=== PATIENT | female | born 1980 | race Caucasian/White ===

== ENCOUNTER 2022-04-25 09:11 | Outpatient (CLI) | payer BC, SELFPAY ==
[2022-04-25 13:54] LABS: Basophils Percent Auto 0.3 % (0.0-3.0); Eosinophils Percent Auto 1.3 % (0.0-7.0); Hematocrit 37.9 % (33.0-51.0); Immature Granulocytes Pct Auto 0.3 %; Lymphocytes Percent Auto 24.1 % (20-44); Mean Corpuscular HGB Conc 32 gm/dL (32-36); Mean Corpuscular Hemoglobin 27 pg (26-34); Mean Corpuscular Volume 85 fL (80-100); Platelet Count* 546 K/uL (140-440); RDW Coefficient of Variation % 16.8 % (11.5-15.5); Red Blood Count 4.47 m/uL (4.00-5.20); White Blood Count* 13.03 K/uL (4.50-11.00)
[2022-04-25 13:57] LABS: Slide Review Reflex No
[2022-04-25 14:28] LABS: Chloride* 104 mmol/L (96-114); Potassium* 4.5 mmol/L (3.6-5.1); Sodium* 137 mmol/L (135-149)
[2022-04-25 14:31] LABS: Blood Urea Nitrogen* 13 mg/dL (5-24); Carbon Dioxide* 26 mmol/L (20-32); Creatinine* 0.6 mg/dL (0.5-1.5); Estimated Glomerular Filt Rate 116 ml/min; Glucose* 109 mg/dL (60-115)
[2022-04-25 14:32] LABS: Calcium* 9.1 mg/dL (8.4-10.6)
[2022-04-25 15:03] LABS: Ferritin* 6.6 ng/mL (6.24-137.0)
[2022-04-25 15:22] LABS: Vitamin B12* 248 pg/mL (243-894)
== END 2022-04-25 09:12 | disposition home or self-care (01) ==
PROVIDERS: PCP Family Medicine; Visit Provider Family Medicine
DX: E61.1 Iron deficiency (principal); K58.9 Irritable bowel syndrome, unspecified; E53.8 Deficiency of other specified B group vitamins; I10 Essential (primary) hypertension
CPT/HCPCS: 80048; 82607; 82728; 85025

== ENCOUNTER 2022-12-18 14:00 | Outpatient (CLI) | payer BC, SELFPAY ==
--- NOTE | 2022-12-18 14:00 | CRLHL7_ITS ---
For Patients: As a result of the Century Cures Act, medical imaging exams and procedure reports are released immediately into your electronic medical record. You may view this report before your referring provider. If you have questions, please contact your health care provider. BILATERAL SCREENING MAMMOGRAM WITH COMPUTER-AIDED DETECTION AND TOMOSYNTHESIS TECHNIQUE: CC and MLO views were obtained. These mammographic images have been obtained using full-field digital technique. These mammographic images were interpreted with the benefit of computer-aided detection. Breast tomosynthesis was used in this interpretation. COMPARISON FILM: None. This is a baseline study. FINDINGS: There are scattered areas of fibroglandular density. IMPRESSION: There is no radiographic evidence for malignancy. ASSESSMENT: BI-RADS Category 1: Negative RECOMMENDATION: Routine screening mammogram in 1 year. A lay language report of this examination will be provided to the patient. TK SAAB M.D. Diagnostic Radiologist [email or web address] JENNIFER/lawrence Transcribed: 12/19/2022, 6:[address]/Dictated by: Tk Saab MD @ 12/19/2022 9:10:00 AM (Electronically Signed)
== END 2022-12-18 14:01 | disposition home or self-care (01) ==
LOC: MAMMO 14:01
PROVIDERS: PCP Family Medicine; Visit Provider Obstetrics & Gynecology
DX: Z12.31 Encounter for screening mammogram for malignant neoplasm of breast (principal); Z84.81 Family history of carrier of genetic disease
CPT/HCPCS: 77063; 77067

== ENCOUNTER 2023-01-05 13:47 | Outpatient (CLI) | payer BC, SELFPAY | END 2023-01-05 13:48 | disposition home or self-care (01) | LOC: NFLDREF 01-07 09:03 | PROVIDERS: PCP Family Medicine; Referring Provider Family Medicine; Visit Provider Family Medicine | DX: N89.8 Other specified noninflammatory disorders of vagina (principal) | CPT/HCPCS: 87086; 87186 ==

== ENCOUNTER 2023-02-21 10:13 | Outpatient (CLI) | payer BC, SELFPAY ==
[2023-02-21 13:33] LABS: Clue Cells No Clue Cells Seen (None Seen); Trichomonas No Trichomonas Seen (None Seen); Yeast Yeast Seen (None Seen)
== END 2023-02-21 10:14 | disposition home or self-care (01) ==
PROVIDERS: PCP Family Medicine; Visit Provider Family Medicine
DX: N89.8 Other specified noninflammatory disorders of vagina (principal)
CPT/HCPCS: 82670; 83001; 83002; 87210

== ENCOUNTER 2023-08-21 09:49 | Outpatient (CLI) | payer BC, SELFPAY | END 2023-08-21 09:50 | disposition home or self-care (01) | LOC: FBOREF 09:50 | PROVIDERS: PCP Family Medicine; Visit Provider Family Medicine | DX: I10 Essential (primary) hypertension (principal) | CPT/HCPCS: 80048 ==

== ENCOUNTER 2024-01-10 09:44 | Outpatient (CLI) | payer BC, SELFPAY ==
--- NOTE | 2024-01-10 09:45 | CRLHL7_ITS ---
For Patients: As a result of the Century Cures Act, medical imaging exams and procedure reports are released immediately into your electronic medical record. You may view this report before your referring provider. If you have questions, please contact your health care provider. BILATERAL SCREENING MAMMOGRAM WITH COMPUTER-AIDED DETECTION AND TOMOSYNTHESIS TECHNIQUE: CC and MLO views were obtained. These mammographic images have been obtained using full-field digital technique. These mammographic images were interpreted with the benefit of computer-aided detection. Breast Tomosynthesis was used in this interpretation. COMPARISON FILM: 12/18/22. FINDINGS: The breasts are almost entirely fatty IMPRESSION: There is no radiographic evidence for malignancy. ASSESSMENT: BI-RADS Category 1: Negative RECOMMENDATION: Routine screening mammogram in 1 year. A lay language report of this examination will be provided to the patient. Tk Cagle M.D. Diagnostic Radiologist [email or web address] JENNIFER/stephanie Transcribed: 6:37 p.emelia brown/Dictated by: Tk Cagle MD @ 01/10/2024 12:05:00 PM (Electronically Signed)
== END 2024-01-10 09:45 | disposition home or self-care (01) ==
LOC: MAMMO 09:45
PROVIDERS: PCP Family Medicine; Visit Provider Family Medicine
DX: Z12.31 Encounter for screening mammogram for malignant neoplasm of breast (principal)
CPT/HCPCS: 77063; 77067

== ENCOUNTER 2024-04-01 08:58 | Outpatient (CLI) | payer BC, SELFPAY ==
--- NOTE | 2024-04-01 09:00 | CRLHL7_ITS ---
For Patients: As a result of the Century Cures Act, medical imaging exams and procedure reports are released immediately into your electronic medical record. You may view this report before your referring provider. If you have questions, please contact your health care provider. INDICATION: Otorrhea and pain in left ear, headaches TECHNIQUE: CT of the temporal bones without contrast. Coronal and axial small field of view reconstructions of both temporal bones are included. COMPARISON: CT temporal bone 02/09/2021 FINDINGS: RIGHT temporal bone: Normal imaged periauricular soft tissues. Normal external auditory canal. Normal tympanic membrane. Trace low-attenuation debris interposed between the malleus and tympanic membrane. Otherwise, clear middle ear. Clear mastoid air cells. Normal ossicular chain. No aggressive osseous erosion. Clear oval and round windows. Unremarkable facial nerve canal. Normal mineralization of the otic capsule. Normal cochlea, vestibule, semicircular canals and vestibular aqueduct. Normal internal auditory canal. Normal carotid canal and jugular fossa. LEFT temporal bone: Normal imaged periauricular soft tissues. Normal external auditory canal. Interval postsurgical changes of canal wall up mastoidectomy, with nonspecific low attenuation opacification of the mastoid bowl and remaining mastoid air cells, along with moderate opacification of the middle ear. Again noted is slightly blunted appearance of the bony scutum. Ossicular chain appears grossly intact. Oval and round windows are opacified. Unremarkable facial nerve canal. Normal mineralization of the otic capsule. Normal cochlea, vestibule, semicircular canals and vestibular aqueduct. Normal internal auditory canal. Vascular: Normal carotid canal and jugular fossa. Imaged head: No suspicious findings. IMPRESSION: 1. Left temporal bone: Since the 02/09/2021 CT, interval postsurgical changes of canal wall up mastoidectomy, with nonspecific complete opacification of the mastoid bowl and mastoid air cells, and moderate opacification of the middle ear. Similar subtle blunting of the bony scutum. No new suspicious bony erosion. Clinical correlation advised. 2. Right temporal bone: Trace nonspecific low-attenuation debris between the malleolus and tympanic membrane. No other suspicious findings. Please note that all CT scans at this facility use dose modulation, iterative reconstruction, and/or weight-based dosing when appropriate to reduce radiation dose to as low as reasonably achievable. Dictated by Rachell Rodriguez MD @ 04/02/2024 9:24:27 AM (Electronically Signed)
== END 2024-04-01 08:59 | disposition home or self-care (01) ==
LOC: CT 08:59
PROVIDERS: PCP Family Medicine; Visit Provider Otolaryngology
DX: H92.12 Otorrhea, left ear (principal); R51.9 Headache, unspecified
CPT/HCPCS: 70480

== ENCOUNTER 2024-04-03 08:26 | Outpatient (CLI) | payer BC, SELFPAY | END 2024-04-03 08:27 | disposition home or self-care (01) | PROVIDERS: PCP Family Medicine; Visit Provider Family Medicine | DX: I10 Essential (primary) hypertension (principal); E61.1 Iron deficiency; Z13.220 Encounter for screening for lipoid disorders | CPT/HCPCS: 80048; 80061; 85025 ==

== ENCOUNTER 2024-04-11 07:17 | Day surgery (SDC) | payer BC, SELFPAY ==
[2024-04-11] VITALS (13 sets, daily range): BP systolic 115–147; BP diastolic 73–88; PULSE 75–96; RESP 16–24; TEMP 36.1–36.5; O2SAT 93–99; BMI 37.9
[2024-04-11] MEDS: OXYMETAZOLINE 0.05% NASAL SPRAY 2 SPRAY NOSTRIL-B (08:00)
[2024-04-11] MEDS: LACTATED RINGERS 1000 ML 1,000 ML 100 ML IV (08:25)
[2024-04-11] MEDS: BUPIVACAINE 0.5 %/EPI 1:200K 30 ML INJECTION (09:03)
[2024-04-11] MEDS: COCAINE HCL 4 % 4 ML SOLUTION NOSTRIL-B (09:03)
[2024-04-11] MEDS: AYR SALINE NASAL GEL 1 APPLIC NOSTRIL-B (09:14)
[2024-04-11] MEDS: MUPIROCIN 1 GM PACKET 1 APPLIC TOPICAL (09:22)
--- NOTE | 2024-04-11 09:42 | W.ANESCHARGE ---
Anesthesia Charges Start Date/Time Anesthesia Start Date: 04/11/24 Anesthesia Start Time: 08:50 Stop Date/Time Anesthesia Stop Date: 04/11/24 Anesthesia Stop Time: 09:39
--- NOTE | 2024-04-11 09:45 | W.PM.ENTPROC ---
Procedure Note Date of procedure: 04/11/24 Procedure: Preop diagnosis nasal obstruction deviated septum, eustachian tube dysfunction, inferior turbinate hypertrophy bilateral Postoperative diagnosis same Procedure nasal septoplasty, submucous partial resection inferior turbinates Under general endotracheal anesthesia the patient was prepped and draped in usual fashion and the nose decongested and injected. A right hemitransfixion incision was made left anterior and posterior tunnels were created. Right anterior and posterior tunnels were created. A vertical incision was made in the septal cartilage anterior to the bony cartilaginous junction posterior deflected portions of septal bone were resected. The anterior septum moved to midline. A large piece of septal cartilage and bone was trimmed and returned to intraseptal space. The hemitransfixion was closed with 2 4-0 chromic sutures A stab incision was made the anterior head of the right inferior turbinate a tunnel created with a [place] dissector. The blaine bone was outfractured a conservative anterior submucous resection performed. The Coblation was used for hemostasis. I also used the Coblation Wand to cauterize intramurally at the posterior head which had undergone polypoid degeneration. This was repeated on the left side in identical fashion. Silastic stents were secured with 3-0 nylon. Merocel packing coated in Bactroban was placed in each side the nose. The patient procedure well was taken recovery in satisfactory condition. Blood loss was less than 10 mL. Surgeon: Harley Whittaker MD
--- NOTE | 2024-04-11 09:45 | W.ANESCHARGE ---
Anesthesia Charges Start Date/Time Anesthesia Start Date: 04/11/24 Anesthesia Start Time: 08:50 Stop Date/Time Anesthesia Stop Date: 04/11/24 Anesthesia Stop Time: 09:39
--- NOTE | 2024-04-11 09:46 | SUR.PHASEI ---
Patient came to PACU awake. No complaints of pain or nausea.
--- NOTE | 2024-04-11 10:01 | SUR.PHASEI ---
Patient awake and comfortable, taking ice chips, talked to Doctor in PACU. No Nausea or pain when asked. Meets anesthesia discharge criteria from PACU.
[2024-04-11] MEDS: OXYCODONE 5 MG TABLET PO (11:16)
[2024-04-11] MEDS: ACETAMINOPHEN 325 MG TABLET PO (11:16)
--- NOTE | 2024-04-11 11:58 | SUR.PHASEII ---
Up to bathroom, voided. pt tolerated yogurt and water. ice pack applied to head. Pt reports pain 3/10 in head. denies pain in nose. Nasal dressing changed x1. Minimal bloody drainage noted.
--- NOTE | 2024-04-11 12:33 | SUR.PHASEII ---
Changed nasal dressing for a total of 2 times. Minimal bloody drainage. Pt reports headache pain 3/10. Ambulated out to her friend who is her ride home.
== END 2024-04-11 12:35 | disposition home or self-care (01) ==
LOC: OR 07:17
PROVIDERS: PCP Family Medicine; Visit Provider Otolaryngology
PROC: (CPT 30520; principal; 2024-04-11 08:30)
DX: J34.2 Deviated nasal septum (principal); J34.3 Hypertrophy of nasal turbinates; H69.83 Other specified disorders of Eustachian tube, bilateral
CPT/HCPCS: 30520; 30140; 00160; A9270; J0330; J1100; J2250; J2704; J3010; J3490; J7120

== ENCOUNTER 2024-08-25 09:25 | Emergency (ER) | payer BC, SELFPAY ==
--- NOTE | 2024-08-25 | CRLHL7_ITS ---
For Patients: As a result of the Century Cures Act, medical imaging exams and procedure reports are released immediately into your electronic medical record. You may view this report before your referring provider. If you have questions, please contact your health care provider. Indication: Left ear pain left-sided throat swelling. Technique: Contrast-enhanced CT of the neck with multiplanar reconstruction. 114 cc Isovue 370 iodinated intravenous contrast was utilized. Comparison: None available. Findings: Operative changes of canal wall up left mastoidectomy. Opacified mastoidectomy bowl, mastoid air cells, and middle ear cavity. No convincing infiltration of the surrounding soft tissues or discrete rim enhancing abscess. No suspicious mucosal based lesion. No pathologically enlarged cervical lymph nodes. Normal parotid and submandibular glands. Unremarkable thyroid. The lung apices are clear. No aggressive osseous lesion is identified. The major vascular structures appear within normal limits. The imaged intracranial structures and orbits appear are unremarkable. Impression: 1. Operative changes of left canal wall up mastoidectomy with chronic opacification of the mastoidectomy bowl, mastoid air cells, and middle ear cavity. 2. No convincing infiltration of the surrounding soft tissues or discrete abscess. 3. No soft tissue mass or evidence of infection/inflammation elsewhere within the neck. Please note that all CT scans at this facility use dose modulation, iterative reconstruction, and/or weight-based dosing when appropriate to reduce radiation dose to as low as reasonably achievable. Dictated by Kristian Salazar MD @ 08/25/2024 12:03:00 PM (Electronically Signed)
--- OUTSIDE RECORDS SUMMARY | 2024-08-25 09:27 | XMS_ITS | Clinical Summary ---
Author Organization [facility] Address [address] [place] [address] Care Team Providers Care Agent Name Role Phone Unavailable Primary Care Provider Unavailabl e Source Comments Patient records contain information from all sites at [facility]. For routine questions regarding patient records, call [phone] during business hours, M-F 8:00 AM - 5:00 PM Central Time. Record requests for emergency care only can be directed to [phone] at any time.[facility] Allergies Active Allergy Reactions Criticality Noted Date Comments Latex Rash High 02/03/2021 Morphine GI intolerance High 02/03/2021 Nickel Rash 07/04/2024 Sulfa (Sulfonamide Antibiotics) Headache High 01/2021 Medications * This document contains information received from the source organization and may not represent a complete record from that organization. buPROPion XL (WELLBUTRIN XL) 150 mg 24 hr tablet Daily 0 Active omeprazole (PriLOSEC) [address] capsule Daily 1 Active PARoxetine (PAXIL) 30 mg tablet Take 30 mg by mouth daily. 1 Active drospirenone-et hinyl estradioL (Meri) 3-0.03 mg per tablet Take 1 tablet by mouth daily. 8 Active acetaminophen (TYLENOL) 500 mg tablet Take 2 tablets (1,000 mg total) by mouth every 6 (six) hours. 1 Active ibuprofen (ADVIL,MOTRIN) 200 mg tablet Take 3 tablets (600 mg total) by mouth every 6 (six) hours as needed for pain. Take with food. 1 Active ofloxacin (FLOXIN) 0.3 % otic solution Administer 4 drops into the left ear 2 (two) times a day. Start using 03/23 5 mL Active metoprolol succinate (Toprol XL) 50 mg 24 hr tablet Take 50 mg by mouth daily. Do not crush or chew. Active cyanocobalamin (Vitamin B-12) 1,000 mcg tablet Take 1,000 mcg by mouth daily. Active iron,carbonyl-v itamin C (Vitron-C) 65 mg iron- [address] tablet Take 65 mg of iron by mouth daily. Do not crush or chew. Active Active Problems Problem Noted Date Diagnosed Date Pain Ear Bilateral 07/03/2024 Otitis Media Unspecified Left Ear 02/22/2021 Overview (01/27/2022): Added automatically from request for surgery [id number] Diagnosis Maintenance Updates Encounters Date Type Department Care Team Description 08/12/2024 8:00 AM CDT Office Visit Department of Otorhinolaryngology in [place], [place] [address] [place] [phone] Raúl Robbins M.D. Pain Ear Left (Primary Dx) 07/04/2024 1:52 PM UPHOLSTERY TECH - 07/04/2024 2:41 PM UPHOLSTERY TECH Surgery [facility] OR [address] [place] [phone] Raúl Robbins M.D. MYRINGOTOMY with Duravent tube. 07/04/2024 1:15 PM UPHOLSTERY TECH Anesthesia Event [facility] OR [address] [place] [phone] Kayleigh Saeed M.D. 07/04/2024 11:36 AM UPHOLSTERY TECH - 07/04/2024 2:41 PM UPHOLSTERY TECH Hospital Encounter [facility] OR [address] [place] [phone] Raúl Robbins M.D. Discharge Disposition: Home or Self Care 07/03/2024 9:00 AM UPHOLSTERY TECH Comprehensive Visit Department of Otorhinolaryngology in [place], [place] [address] [place] [phone] Raúl Robbins M.D. Pain Ear Left (Primary Dx) 07/03/2024 8:00 AM [facility] Diagnostic Department of Otorhinolaryngology in [place], [place] [address] [place] [phone] Harley Whittaker M.D. Amorim, Rachel M, Au.D., M.A. Pain Ear Bilateral from Last 3 Months Family History Medical History Relation Name Comments Psychiatric Brother Quan Coronary artery disease Father 1 Jaydon pass ed away 05/2010 Stroke Father 1 Jaydon Transient ischemic attack Father 1 Jaydon Colon polyps Father 2 Jaydon Coronary artery disease Father 2 Jaydon pass ed away 05/2010 Diabetes Father 2 Jaydon Hyperlipidemia Father 2 Jaydon Sleep apnea Father 2 Jaydon Stroke Father 2 Jaydon Transient ischemic attack Father 2 Jaydon Colon cancer Father's Sister Radha Lara Pancreatic cancer Maternal Grandmother Mariposa Romero Breast cancer Mother Barbi Lara Colon polyps Mother Barbi Lara Other cancer Mother Barbi Lara Cervical cancer Rheum arthritis Mother Barbi Lara Skin cancer Mother Barbi Lara Parkinson disease Mother's Sister Hanna Ulcerative colitis Mother's Sister Hanna Relation Name Status Comments Brother Quan Alive Father 1 Jaydon Alive Father 2 Jaydon Alive Father's Sister Radha Lara Alive Maternal Grandmother Mariposa Romero Alive Mother Barbi Lara Alive Mother's Sister Hanna Alive Social History Tobacco Use Types Packs/Day Years Used Date Smoking Tobacco: Every Day Cigarettes 0.5 28 Smokeless Tobacco: Never Alcohol Use Standard Drinks/Week Comments Never 0 (1 standard drink = 0.6 oz pur e alcohol) [facility] Utilities Answer Date Recorded In the past 12 months has [employer], gas, oil, or water [employer] threatened to shut off services in your home? No 06/27/2024 Social Connection and Isolat ion Panel [NHANES] Answer Date Recorded In a typical week, how many times do you talk on the phone with family, friends, or neighbors? More than three times a week 02/22/2021 How often do you get togethe r with friends or relatives? Twice a week 02/22/2021 How often do you attend [facility] or faith services? More than 4 times per year 02/22/2021 Do you belong to any clubs o r organizations such as gnosticist groups, unions, fraternal or athletic groups, or school groups? No 02/22/2021 How often do you attend meet ings of the clubs or organizations you belong to? Patient declined 02/22/2021 Are you , , di vorced, , never , or living with a partner? 02/22/2021 AUDIT-C Answer Date Recorded Q1: How often do you have a drink containing alc ohol? Never 02/22/2021 Average Number of Drinks Not on file 021 Frequency of Binge Drinking Not on file 01/27 Overall Financial Resource Strain (CARDIA) Answe r Date Recorded How hard is it for you to pa y for the very basics like food, housing, medical care, and heating? Not very hard 02/22/2021 [facility] [place] [facility] - Occupational Stress Questionnaire Answer Date Recorded Do you feel stress - tense, restless, nervous, or anxious, or unable to sleep at night because your mind is troubled all the time - these days? To some extent 02/22/2021 Exercise Vital Sign Answer Date Recorde d On average, how many days pe r week do you engage in moderate to strenuous exercise (like a brisk walk)? 3 days 06/27/2024 On average, how many minutes do you engage in exercise at this level? 30 min 06/27/2024 Hunger Vital Sign Answer Date Recorded Within the past 12 months, y ou worried that your food would run out before you got the money to buy more. Never true 06/27/19 25 Within the past 12 months, t he food you bought just didn't last and you didn't have money to get more. Never true 06/27/2024 PRAPARE - Transportation Answer Date Re corded In the past 12 months, has l ack of transportation kept you from medical appointments or from getting medications? No 05/30 In the past 12 months, has l ack of transportation kept you from meetings, work, or from getting things needed for daily living? No 06/27/2024 Nutrition Answer Date Recorded On average, how many serving s of fruits and vegetables do you eat per day (serving size is equal to 1 cup or approximately the size of a tennis ball)? 0-2 06/27/2024 Dental Answer Date Recorded Dental: Regular Dentist Yes 06/27/19 Employment Answer Date Recorded Employment status Employed and actively working without restrictions 06/27/2024 Housing Stability Answer Date Recorded What is your living situation today? I have a [facility] [place] place to live 06/27/2024 Education Answer Date Recorded What is the highest level of school you have completed or the highest degree you have received? Associate degree: occupational, technical, or vocational program 02/22/2021 Comments No Sex and Gender Information Value Date Recorded Sex Assigned at Female 02/22/2021 8:31 AM CDT Legal Sex Female 11:22 PM UPHOLSTERY TECH Gender Identity Female 02/22/2021 8:31 AM CDT Sexual Orientation Straight 02/22/2021 8: 31 AM CDT Last Filed Vital Signs Vital Sign Reading Time Taken Comments Blood Pressure 117/77 07/04/2024 2:15 PM UPHOLSTERY TECH Pulse 84 07/04/2024 2:15 PM UPHOLSTERY TECH Temperature 36.6 C (97.9 F) 07/04/2024 1:55 PM UPHOLSTERY TECH Respiratory Rate 19 07/04/2024 2:15 PM UPHOLSTERY TECH Oxygen Saturation 91% 07/04/2024 2:15 PM UPHOLSTERY TECH Inhaled Oxygen Concentration - - Weight 104 kg (229 lb 11.5 oz) 07/04/2024 12:00 PM UPHOLSTERY TECH Height 165.1 cm (5' 5) 07/04/2024 12:00 PM UPHOLSTERY TECH Body Mass Index 38.23 07/04/2024 12:00 PM UPHOLSTERY TECH Plan of Treatment Upcoming Encounters Date Type Department Care Team (Late st Contact Info) Description 11/13/2024 1:00 PM CDT Comprehensive Visit Department of Neurology in [place], [place] [address] [place] [phone] Tito Lee M.D. [address] [place] [phone] Health Maintenance Due Date Last Done Comments HIV Screening 1981 Hepatitis C Screening 1981 Lipid (Cholesterol) Screening 1981 Mammogram 1981 Tobacco Cessation counseling 1981 Pneumococcal vaccine (0-49 years) (1 of 2 - PCV) 2000 COVID-19 Vaccine (3 - 2023- season) 2024 07/09/2020, 06/11/2020 Influenza Vaccine (#1) 2024 2, 02/16/2021, 04/16/2020, Additional history exists Depression Screening (Annual PHQ-2) 05/28/2024 DTaP,Tdap,and Td Vaccines (3 - Td or Tdap) 10/14/2025 10/15/2015, 07/28/2008 Hepatitis B Vaccines Completed 07/30/2001, 03/06/2001, 01/30/2001 HPV Vaccines Aged Out No longer eligi ble based on patient's age to complete this topic IPV Vaccines Aged Out No longer eligi ble based on patient's age to complete this topic Medical Devices Implanted Type Area Drum Sealer Device Identifier Shelf Expiration Date Model / Serial / Lot Ear Tubes (E.G. Pe Tubes)- Implanted:05/2020 (Quantity not on file) Ear Tubes (e.g. PE Tubes) Left: Ear Tb Vnt Drv Twin 1.27x1.37x4.5 - [id number] Implanted:Qty: 1 on 07/04/2024 by Raúl Robbins M.D. at [facility] Ear Tubes (e.g. PE Tubes) Left: Ear [employer] Liss [id number] / / Procedures Procedure Name Priority Date/Time Associated Diagnosis Comments MYRINGOTOMY 07/04/2024 1:03 PM UPHOLSTERY TECH Pain Ear Bilateral Case Notes [employer] 11:40 OTOLARYNGOLOGY REFERRAL Routine 07/03/19 12:00 AM UPHOLSTERY TECH Pain Ear Bilateral from Last 3 Months Results * Otolaryngology Referral (07/03/2024 12:00 AM UPHOLSTERY TECH) 07/03/2024 Harley Whittaker M.D. OUTPATIENT EXTERNAL REF ERRALS Final Result from Last 3 Months Insurance [id number] [place] [phone] [facility] [place] [id number]
--- OUTSIDE RECORDS SUMMARY | 2024-08-25 09:27 | XMS_ITS | CCD ---
Author Name Interface, [id number] lity Address [address] [place] [address] [address] [place] [address] [facility] Oncology Address [address] [facility] [address] [place] [address] Care Team Providers Care Assembling Inspector Name Role Phone Keyonna Wang Unavailable Unavailable Reason for Visit GENETICS NEW PT EXTERNAL REFERRAL 60 MIN Social History Date Name Value Sex Female
--- OUTSIDE RECORDS SUMMARY | 2024-08-25 09:27 | XMS_ITS | Encounter Summary ---
Author Organization [facility] Address [address] [place] [address] Care Team Providers Care Continuous Conveyor Screen Drier Name Role Phone Unavailable Primary Care Provider Unavailabl e Reason for Referral * Outpatient (Routine) - Pending Review Specialty Diagnoses / Procedures Referred By Contac t Referred To Contact Neurology Diagnoses Pain Ear Left Raúl Robbins M.D. [address] [place] [phone] Phone: tel: fax: [facility] Referral ID Status Reason Start Date Expiration Date V isits Requested Visits Authorized [id number] Pending Review 08/12/2024 02/11/2026 1 1 Reason for Visit * Outpatient (Routine) - Closed Specialty Diagnoses / Procedures Referred By Contac t Referred To Contact Otorhinolaryngology Diagnoses dx Arabella Penn, BETZYS, P.A.-C. [address] [place] [phone] Phone: tel: fax: Raúl Robbins M.D. [address] [place] [phone] Phone: tel: fax: Referral ID Status Reason Start Date Expiration Date Visits Re quested Visits Authorized [id number] Closed 04/03/2024 04/03/2025 1 1 Encounter Details Date Type Department Care Team (Latest Contact Info) Description 08/12/2024 8:00 AM CDT Office Visit Department of Otorhinolaryngology in [place], [place] [address] [place] [address] Raúl Robbins M.D. [address] [place] [address] Pain Ear Left (Primary Dx) Social History Tobacco Use Types Packs/Day Years Used Date Smoking Tobacco: Every Day Cigarettes 0.5 28 Smokeless Tobacco: Never Alcohol Use Standard Drinks/Week Comments Never 0 (1 standard drink = 0.6 oz pur e alcohol) [facility] Utilities Answer Date Recorded In the past 12 months has e electric, gas, oil, or water company threatened to shut off services in your [...] week 02/22/2021 How often do you attend chur ch or restoration services? More than 4 times per year 02/22/2021 Do you belong to any clubs o r organizations such as jainism groups, unions, fraternal or athletic groups, or [...] care, and heating? Not very hard 02/22/2021 [facility] of Occupat ional Health - Occupational Stress [...] money to buy more. Never true 06/27/19 Within the past 12 months, t he [...] your living situation today? I have a [facility] place to live 06/27/2024 Education Answer Date Recorded What is the highest level of school you have completed or the highest degree you have received? 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 - 08/12/2024 8:00 AM CDT SUBJECTIVE CHIEF COMPLAINT / REASON FOR VISIT Right aural fullness, otalgia HISTORY OF PRESENT ILLNESS Nelsy Palma is a 43 y.o. female with a history of chronic suppurative otitis media status post intact canal wall tympanomastoidectomy with tube retrieval and fascia graft on 03/09/2021. She presents left myringotomy with Duravent tube placement on 07/04/2024 for left aural fullness and otalgia. Unfortunately, she has not noted benefit from tube placement and continues to report symptoms including left sided fullness, pressure, otalgia, and headaches. She notes crackling in the ear with turning her head side to side. She continues to note baseline dizziness. She presented to her primary care provider due to increased pressure and pain as well as fevers and chills. She was prescribed a course of cefdinir, which she continues today. She denies otorrhea or change in hearing. The following portions of the patient's history were reviewed and updated as appropriate: allergies, current medications, family history, medical history, social history, surgical history, and problem list. OBJECTIVE PHYSICAL EXAM General: Well appearing in no acute distress. Head: Normocephalic, atraumatic. Eyes: Extraocular eye movements intact bilaterally. Ears: Bilateral external ears without masses or lesions. Bilateral ears examined under otomicroscopy. Right Ear: Externally normal in appearance. External auditory canal with scant cerumen, removed with suction. Tympanic membrane intact without perforation, retraction, or bulging. No evidence of effusion/infection. Left Ear: Externally normal in appearance. External auditory canal patent and healthy. Blue Duravent tube is extruded and present in the canal. Tympanic membrane intact without perforation, retraction, or bulging. No evidence of effusion/infection. Respiratory: Unlabored respirations. Psych: Appropriate mood and affect. ASSESSMENT / PLAN #1 Pain Ear Left It was a pleasure to see Mrs. Palma today. Unfortunately, she continues to notes left sided symptoms including aural fullness, otalgia, and headaches. The left Duravent tube has extruded from the TM and is present in the external auditory canal. We discussed option of tube replacement, noting concern that this would again not relief her symptoms due to the lack of benefit following this most recent tube placement. We also discussed that tube placement has not shown benefit in preventing recurrent infections. She questions additional surgery including mastoidectomy and we discussed indication for mastoidectomy is not for preventative therapy but for treating chronic infections resulting inTM perforation and chronic otorrhea, among other indications. Given lack of tube placement, we did review additional considerations of other etiologies of her pain, including or previous surgery or possible headache/migraine etiology. In the setting, we discussed options of managing pain with pain center or consideration of neurology headache consult. After reviewing all these options, Mrs. Palma we would like to proceed with further consideration of migraine/headache treatments and an order was placed for neurology consult. All questions were entertained to the best of our ability. Patient expressed understanding and agreement with this treatment plan. Cosigned by Raúl Robbins M.D. at 08/12/2024 12:54 PM CDT Associated attestation - Raúl Robbins M.D. - 08/12/2024 12:54 PM CDT I saw and evaluated the patient, participating in the palma portions of the service. I reviewed the resident/fellow???s note. I agree with the resident/fellow???s findings and plan. Patient with a previous history of chronic suppurative otitis media status post left tympanomastoidectomy. More recently she had left otalgia and ear fullness and elected to undergo a left Duravent tube on 07/04/2024. This did not give her any relief of the pressure/pain symptom, even for a few days. Examination showsthat the tube is now out and I removed it from the ear canal. The tympanic membrane is intact. I donot see acute otitis media or otorrhea today. If the tube were to be helpful, she should have had some relief of her symptom which did not occur. I do not think trying the tube over an over again will likely benefit this problem. Her options at this point are to live with the current symptoms, consider a pain center, or consider Headache Clinic medication management options for head pain. Tubes do not have a role in recurrent infections. I am unsure if she is having infections or she is being placed on antibiotics for noninfectious otalgia. documented in this encounter Plan of Treatment Upcoming Encounters Date Type Department Care Team ([facility] st Contact Info) Description 11/13/2024 1:00 PM CDT Comprehensive Visit Department of Neurology in [place], [place] [address] [place] [address] Tito Lee M.D. [address] [place] [address] Scheduled Referrals Name Type Priority Associated Diagnoses Orde r Schedule Neurology - Headache consult (clinic) Outpatient Referral Routine Pain Ear Left Expected: 08/12/2024, Expires: 11/12/2025 documented as of this encounter Visit Diagnoses Diagnosis Pain Ear Left- Primary documented in this encounter
[2024-08-25 09:33] VITALS: BP 135/85; PULSE 75; RESP 18; TEMP 36.6; O2SAT 97; BMI 39.8
--- NOTE | 2024-08-25 10:17 | CRLHL7_ITS ---
For Patients: As a result of the Century Cures Act, medical imaging exams and procedure reports are released immediately into your electronic medical record. You may view this report before your referring provider. If you have questions, please contact your health care provider. Indication: Left ear pain. Technique: Noncontrast CT of the temporal bones with multiplanar reconstructions. Comparison: CT temporal bones dated 04/01/2024. Findings: Right: Patent external auditory canal. Clear mastoid air cells and middle ear cavity. The ossicular chain is intact. The otic capsule is normal in density. The cochlea, vestibule, and semicircular canals are within normal limits. The internal auditory canal and canal for the facial nerve are unremarkable. Left: Redemonstrated operative changes of canal wall up mastoidectomy. Similar opacification of the mastoid bowl, mastoid air cells, and middle ear cavity. Unchanged apparent blunting of the scutum. The ossicular chain is intact without convincing evidence of disruption or erosion. The otic capsule is normal in density. The cochlea, vestibule, and semicircular canals are within normal limits. The internal auditory canal and canal for the facial nerve are unremarkable. Impression: 1. Redemonstrated operative changes of left canal wall up mastoidectomy. 2. Similar opacification of the mastoidectomy bowl, left mastoid air cells, and left middle ear cavity, with apparent blunting of the scutum. 3. No evidence of acute infection or new osseous erosion. Please note that all CT scans at this facility use dose modulation, iterative reconstruction, and/or weight-based dosing when appropriate to reduce radiation dose to as low as reasonably achievable. Dictated by Kristian Salazar MD @ 08/25/2024 11:57:42 AM (Electronically Signed)
--- NOTE | 2024-08-25 10:19 | ED_ITS ---
HPI - General Adult General Chief complaint: Ear/Nose/Throat Problem Stated complaint: left ear infection ? Time Seen by Provider: 08/25/24 10:06 History of Present Illness HPI narrative: This 43-year-old female has a history of otitis media and did go to [place] where intelligence research specialist did put in a ventilatory tube. This occurred about a month ago and that tube has dislodged. She was seen almost 3 weeks ago in the clinic and started on Omnicef for 10 days. This caused her symptoms of infection to resolve. She comes in today because of recurrent symptoms in that left ear. She also reports some pain when closing her mouth. She also has some throat pain. She does not report any fevers and has not had any drainage from her left ear. Related Data Home Medications ?Medication ?Instructions ?Recorded ?Confirmed mecobalamin (vitamin B12) 1,000 1,000 mcg PO QDAY 02/21/23 08/07/24 mcg lozenges ferrous sulfate [Iron (ferrous 1 tab PO QDAY 04/03/24 08/07/24 sulfate)] Previous Rx's ?Medication ?Instructions ?Recorded diphenoxylate-atropine 2.5 1 tab PO TID PRN diarrhea #90 tabs 10/05/22 mg-0.025 mg tablet (Lomotil) bupropion HCl 300 mg 24 hr tablet, 300 mg PO DAILY #90 tabs 03/12/24 extended release metoprolol succinate 50 mg 50 mg PO DAILY #90 tabs 03/12/24 tablet,extended release 24 hr omeprazole 40 mg capsule,delayed 40 mg PO QDAY #90 caps 06/30/24 release paroxetine HCl 40 mg tablet 40 mg PO QDAY #90 tabs 06/30/24 cefdinir 300 mg capsule 300 mg PO BID #10 caps 08/25/24 ketorolac 10 mg tablet 10 mg PO TID 5 days #15 tabs 08/25/24 Allergies Allergy/AdvReac Type Severity Reaction Status Date / Time latex Allergy Severe Hives Verified 08/25/24 11:27 morphine Allergy Severe Vomiting Verified 08/25/24 11:27 Sulfa (Sulfonamide Allergy Severe Headache Verified 08/25/24 11:27 Antibiotics) metal Allergy Mild Rash Uncoded 08/25/24 11:27 Review of Systems Status of ROS: Reports: 10 or more systems reviewed and unremarkable except as noted in History and below Narrative: Constitutional: No fevers, no weight gain or loss. Eyes: No discharge. No vision changes. HENT: Left ear pain and associated sore throat. Cardiovascular: No chest pain, no palpitations. Respiratory: No shortness of breath, no wheezes, no cough. Gastrointestinal: No abdominal pain, no vomiting, no diarrhea. Genitourinary: No dysuria, no hematuria. Musculoskeletal: Normal range of motion. Skin: No rashes, no pruritis. Neurological: No dizziness, weakness, sensory change, speech change. Endo/Heme/Allergies: No bruising or bleeding. No polydipsia. Pysch: no suicidality, no anxiety, no insomnia. All other systems reviewed and are negative. [facility] Medical History (Updated 08/25/24 @ 14:34 by Isaak Puente MD) Primary hypertension ?I10 - Essential (primary) hypertension (ICD-10) Family history of BRCA gene mutation ?Z84.81 - Family history of carrier of genetic disease (ICD-10) Menorrhagia ?N92.0 - Excessive and frequent menstruation with regular cycle (ICD-10) Abdominal pain ?R10.9 - Unspecified abdominal pain (ICD-10) Degeneration of uterine fibroid ?D25.9 - Leiomyoma of uterus, unspecified (ICD-10) Iron deficiency ?E61.1 - Iron deficiency (ICD-10) B12 deficiency ?E53.8 - Deficiency of other specified B group vitamins (ICD-10) Vesicular palmoplantar eczema ?L30.1 - Dyshidrosis [pompholyx] (ICD-10) Irritable bowel syndrome ?K58.9 - Irritable bowel syndrome without diarrhea (ICD-10) History of vitamin D deficiency ?Z86.39 - Personal history of other endocrine, nutritional and metabolic disease (ICD-10) History of renal calculi ?Z87.442 - Personal history of urinary calculi (ICD-10) Gastroesophageal reflux disease ?K21.9 - Gastro-esophageal reflux disease without esophagitis (ICD-10) Anxiety and depression ?F41.9 - Anxiety disorder, unspecified (ICD-10) ?F32.A - Depression, unspecified (ICD-10) Allergic rhinitis ?J30.9 - Allergic rhinitis, unspecified (ICD-10) Surgical History (Updated 08/21/23 @ 21:10 by Tk Brewer MD) Status post bilateral salpingectomy (10/10/22) ?Z90.79 - Acquired absence of other genital organ(s) (ICD-10) Status post abdominal hysterectomy (10/10/22) ?Z90.710 - Acquired absence of both cervix and uterus (ICD-10) Status post placement of ureteral stent (04/04/13) ?Z96.0 - Presence of urogenital implants (ICD-10) History of tonsillectomy and adenoidectomy (2004) ?Z90.89 - Acquired absence of other organs (ICD-10) History of surgery on wrist (2004) ?Z98.890 - Other specified postprocedural states (ICD-10) History of mastoidectomy ?Z90.89 - Acquired absence of other organs (ICD-10) History of lithotripsy (04/18/13) ?Z98.890 - Other specified postprocedural states (ICD-10) History of cholecystectomy (2009) ?Z90.49 - Acquired absence of other specified parts of digestive tract (ICD- 10) Social History (Updated 10/16/22 @ 14:08 by Micki Barclay MD) Narrative: 3 children [facility] Smoking Status: Current every day smoker What tobacco products do you use: cigarettes Smoking packs per day: 0.5 Smoking cigarettes per day: 10.0 Smoking quit date/years: <= 15 years ago Do you use any of these nicotine containing products: None How often do you have a drink containing alcohol: monthly or less Alcohol type: beer How many standard drinks containing alcohol do you have on a typical day: 1 or 2 How often do you have six or more drinks on one occasion: Never AUDIT-C Alcohol total score: 1 Non-prescribed substance use: denies use Caffeine: Yes service: No Exam Narrative: Exam Narrative: Constitutional: Well-developed, well-nourished, no acute distress. HEENT: Normocephalic, atraumatic. Right tympanic membrane appears normal. Left tympanic membrane has erythema with bulging typical of infection. There is no sign of ventilatory tube in the canal and no sign of drainage. Neck: Normal range of motion. Nontender. Supple. Heart: Intact distal pulses. Lungs: No chest discomfort. No wheezes, rhonchi, or rales. Abdomen: Nontender. Back: Normal range of motion. Extremities: Normal range of motion. No injury. Skin: Intact. No rash. Warm. No erythema or pallor. Neurologic: No altered sensation. No weakness. Alert and oriented. Psychiatric: No suicidality. No anxiety or depression. No insomnia. Nursing notes and vitals signs are reviewed. Const: Vital Signs, click to edit/add: Vital Signs - 24 hr 08/25/24 09:33 08/25/24 13:00 08/25/24 13:23 Temperature 97.9 F 98.3 F Pulse Rate [Right Pulse Oximeter] 75 73 81 Respiratory Rate 18 18 18 Blood Pressure [Ri t Upper Arm] 135/85 113/79 Pulse Oximetry 97 99 100 Oxygen Delivery Me thod Room Air Room Air Room Air Course Vital Signs Vital signs: Initial Vital Signs Temperature 97.9 F 08/25/24 09:33 Temperature Source Temporal Artery Scan 08/25/24 09:33 Pulse Rate 75 08/25/24 09:33 Respiratory Rate 18 08/25/24 09:33 Blood Pressure 135/85 08/25/24 09:33 Blood Pressure Mean 101 08/25/24 09:33 Blood Pressure Position Sitting 08/25/24 09:33 Pulse Oximetry 97 08/25/24 09:33 Oxygen Delivery Method Room Air 08/25/24 09:33 Vital Signs Temperature 97.9 F 08/25/24 09:33 Pulse Rate 75 08/25/24 09:33 Respiratory Rate 18 08/25/24 09:33 Blood Pressure 135/85 08/25/24 09:33 Pulse Oximetry 97 08/25/24 09:33 Oxygen Delivery Method Room Air 08/25/24 09:33 Temperature 98.3 F 08/25/24 13:23 Pulse Rate 81 08/25/24 13:23 Respiratory Rate 18 08/25/24 13:23 Blood Pressure 113/79 08/25/24 13:23 Pulse Oximetry 100 08/25/24 13:23 Oxygen Delivery Method Room Air 08/25/24 13:23 Medications Administered Medications: Discontinued Medications Generic Name Dose Route Start Last Admin Trade Name Freq PRN Reason Stop Dose Admin Ketamine HCl 20 mg/ Sodium 100.2 mls @ 300.6 mls/hr 08/25/24 13:06 08/25/24 14:14 Chloride IVPB 08/25/24 13:07 Infused ONCE ONE Infusion Ketorolac Tromethamine 30 mg 08/25/24 10:17 08/25/24 10:44 Ketorolac 30 Mg/Ml Inj IVP 08/25/24 10:18 30 mg ONCE ONE Administration Medical Decision Making MDM Narrative Medical decision making narrative: This patient comes in with left ear pain. This is a recurrent problem for her and she has had a mastoidectomy in the past. She does have an appointment with ear nose and throat clinic tomorrow. She completed Omnicef about a week ago for an infection that occurred about 3 weeks ago. She got better until today. I did obtain a CT scan of her auditory canals and there are no acute findings according to Radiology report. She has had a mastoidectomy but no changes compared to previous. The patient did receive an IV dose of Toradol which did not bring much relief to her headache. She then received ketamine 20 mg IV. This brought sufficient relief to her headache. Prescriptions are provided for Omnicef and Toradol. Discharge Plan Discharge Clinical Impression: Otitis media Patient Disposition: Home, Self-Care Condition: Improved Additional Instructions: Take medication as prescribed. Follow up with clinic appointment tomorrow as scheduled. Return if worsening. Prescriptions: New cefdinir 300 mg capsule 300 mg PO BID Qty: 10 0RF ketorolac 10 mg tablet 10 mg PO TID 5 Days Qty: 15 0RF No Action mecobalamin (vitamin B12) 1,000 mcg lozenge 1,000 mcg PO QDAY Rx Instructions: allow to dissolve in mouth OR may chew lightly before swallowing ferrous sulfate [Iron (ferrous sulfate)] 1 tab PO QDAY diphenoxylate-atropine [Lomotil] 2.5-0.025 mg tablet 1 tab PO TID PRN (Reason: diarrhea) Qty: 90 1RF metoprolol succinate 50 mg tablet extended release 24 hr 50 mg PO DAILY Qty: 90 1RF bupropion HCl 300 mg tablet extended release 24 hr 300 mg PO DAILY Qty: 90 1RF paroxetine HCl 40 mg tablet 40 mg PO QDAY Qty: 90 0RF omeprazole 40 mg capsule,delayed release(DR/EC) 40 mg PO QDAY Qty: 90 0RF Follow Up/Referrals: Tk Brewer MD [Primary Care Provider] - Stand Alone Forms: XYZE Info Instructions
--- OUTSIDE RECORDS SUMMARY | 2024-08-25 10:26 | XMS_ITS | Encounter Summary ---
Author Organization [facility] Address [address] [place] [address] Care Team Providers Care Director Of Placement Name Role Phone Unavailable Primary Care Provider Unavailabl e Reason for Referral * Outpatient (Routine) - Pending Review Specialty Diagnoses / Procedures Referred By Contac t Referred To Contact Neurology Diagnoses Pain Ear Left Raúl Robbins M.D. [address] [place] [phone] Phone: tel: fax: [facility] Referral ID Status Reason Start Date Expiration Date V isits Requested Visits Authorized [id number] Pending Review 08/12/2024 02/11/2026 1 1 Reason for Visit * Outpatient (Routine) - Closed Specialty Diagnoses / Procedures Referred By Contac t Referred To Contact Otorhinolaryngology Diagnoses dx Arabella Penn, BETZYS, P.A.-C. [address] [place] [phone] Phone: tel: fax: Raúl Robbins M.D. [address] [place] [phone] Phone: tel: fax: Referral ID Status Reason Start Date Expiration Date Visits Re quested Visits Authorized [id number] Closed 04/03/2024 04/03/2025 1 1 Encounter Details Date Type Department Care Team (Latest Contact Info) Description 08/12/2024 8:00 AM CDT Office Visit Department of Otorhinolaryngology in [place], [place] [address] [place] [address] Raúl Robbins M.D. [address] [place] [address] Pain Ear Left (Primary Dx) Social History Tobacco Use Types Packs/Day Years Used Date Smoking Tobacco: Every Day Cigarettes 0.5 28 Smokeless Tobacco: Never Alcohol Use Standard Drinks/Week Comments Never 0 (1 standard drink = 0.6 oz pur e alcohol) [facility] Utilities Answer Date Recorded In the past [...] often do you attend chur ch or jehovah's witness services? More than 4 times per year 02/22/2021 Do you belong to any clubs o r organizations such as christian groups, unions, fraternal or athletic groups, or [...] care, and heating? Not very hard 02/22/2021 [facility] [place] of Occupat ional Health - Occupational Stress [...] your living situation today? I have a [facility] place to live 06/27/2024 Education Answer Date Recorded What is the highest level of school you have completed or the highest degree you have received? 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 [address] [place] [address] Scheduled Referrals Name Type Priority Associated Diagnoses Orde r Schedule Neurology - Headache consult (clinic) Outpatient Referral Routine Pain Ear Left Expected: 08/12/2024, Expires: 11/12/2025 documented as of this encounter Visit Diagnoses Diagnosis Pain Ear Left- Primary documented in this encounter
--- OUTSIDE RECORDS SUMMARY | 2024-08-25 10:26 | XMS_ITS | CCD ---
Author Name Interface, [id number] lity Address [address] [place], [place] [address] [place] [address] [facility] Address [address] [facility] [address] [place] [address] Care Team Providers Care Rubber Attacher Name Role Phone Keyonna Wang Unavailable Unavailable Reason for Visit Social History
--- OUTSIDE RECORDS SUMMARY | 2024-08-25 10:26 | XMS_ITS | Clinical Summary ---
Author Organization [facility] Address [address] [place] [address] Care Team Providers Care Rn Angiography Name Role Phone Unavailable Primary Care Provider Unavailabl e Source Comments Patient records contain information from all sites at [facility]. For routine questions regarding patient records, call [phone] during business hours, M-F 8:00 AM - 5:00 PM Central Time. Record requests for emergency care only can be directed to [phone] at any time.[facility] Allergies Active Allergy Reactions Criticality Noted Date [...] (01/27/2022): Added automatically from request for surgery [id number] Diagnosis Maintenance Updates Encounters Date Type Department Care Team Description 08/12/2024 8:00 AM CDT Office Visit Department of Otorhinolaryngology in [place], [place] [address] [place] [phone] Raúl Robbins M.D. Pain Ear Left (Primary Dx) 07/04/2024 1:52 PM CONSULTATIVE SALES ASSOCIATE - 07/04/2024 2:41 PM CONSULTATIVE SALES ASSOCIATE Surgery [facility] [address] [place] [phone] Raúl Robbins M.D. MYRINGOTOMY with Duravent tube. 07/04/2024 1:15 PM CONSULTATIVE SALES ASSOCIATE Anesthesia Event [facility] [address] [place] [phone] Kayleigh Saeed M.D. 07/04/2024 11:36 AM CONSULTATIVE SALES ASSOCIATE - 07/04/2024 2:41 PM CONSULTATIVE SALES ASSOCIATE Hospital Encounter [facility] [address] [place] [phone] Raúl Robbins M.D. Discharge Disposition: Home or Self Care 07/03/2024 9:00 AM CONSULTATIVE SALES ASSOCIATE Comprehensive Visit Department of Otorhinolaryngology in [place], [place] [address] [place] [phone] Raúl Robbins M.D. Pain Ear Left (Primary Dx) 07/03/2024 8:00 AM [facility] Diagnostic Department of Otorhinolaryngology in [place], [place] [address] [place] [address] Harley Whittaker M.D. Amorim, Rachel M, Au.D., [...] drink = 0.6 oz pur e alcohol) [facility] Utilities Answer Date Recorded In the past 12 months has [employer], gas, oil, or water [employer] threatened to shut off services in your [...] week 02/22/2021 How often do you attend [facility] or mormon services? More than 4 times per year 02/22/2021 Do you belong to any clubs o r organizations such as caodaism groups, unions, fraternal or athletic groups, or [...] care, and heating? Not very hard 02/22/2021 [facility] [place] of Occupat ional Health - Occupational Stress [...] AM CDT Legal Sex Female 11:22 PM CONSULTATIVE SALES ASSOCIATE Gender Identity Female 02/22/2021 8:31 AM CDT Sexual Orientation Straight 02/22/2021 8: 31 AM CDT Last Filed Vital Signs Vital Sign Reading Time Taken Comments Blood Pressure 117/77 07/04/2024 2:15 PM CONSULTATIVE SALES ASSOCIATE Pulse 84 07/04/2024 2:15 PM CONSULTATIVE SALES ASSOCIATE Temperature 36.6 C (97.9 F) 07/04/2024 1:55 PM CONSULTATIVE SALES ASSOCIATE Respiratory Rate 19 07/04/2024 2:15 PM CONSULTATIVE SALES ASSOCIATE Oxygen Saturation 91% 07/04/2024 2:15 PM CONSULTATIVE SALES ASSOCIATE Inhaled Oxygen Concentration - - Weight 104 kg (229 lb 11.5 oz) 07/04/2024 12:00 PM CONSULTATIVE SALES ASSOCIATE Height 165.1 cm (5' 5) 07/04/2024 12:00 PM CONSULTATIVE SALES ASSOCIATE Body Mass Index 38.23 07/04/2024 12:00 PM CONSULTATIVE SALES ASSOCIATE Plan of Treatment Upcoming Encounters Date Type Department Care Team (Late st Contact Info) Description 11/13/2024 1:00 PM CDT Comprehensive Visit Department of Neurology in [place], [place] [address] [place] [phone] Tito Lee M.D. [address] [place] [phone] Health Maintenance Due Date Last Done Comments [...] this topic Medical Devices Implanted Type Area Chain Saw Operator Device Identifier Shelf Expiration Date Model / Serial / Lot Ear Tubes (E.G. Pe Tubes)- Implanted:05/2020 (Quantity not on file) Ear Tubes (e.g. PE Tubes) Left: Ear Tb Vnt Drv Twin 1.27x1.37x4.5 - [id number] Implanted:Qty: 1 on 07/04/2024 by Raúl Robbins M.D. at [facility] Ear Tubes (e.g. 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 OUTPATIENT EXTERNAL REF ERRALS Final Result from Last 3 Months Insurance [address] [place] [id number] [facility] [place] [id number]
--- OUTSIDE RECORDS SUMMARY | 2024-08-25 10:26 | XMS_ITS | CCD ---
Author Name Interface, [id number] lity Address [address] [place], [place] [address] [place] [address] [facility] Address [address] [facility] [address] [place] [address] Care Team Providers Care Accountant Bookkeeper Name Role Phone Keyonna Wang Unavailable Unavailable Reason for Visit Social History
[2024-08-25] MEDS: KETOROLAC 30 MG/ML inj IVP (10:44)
[2024-08-25 13:00] VITALS: PULSE 73; RESP 18; O2SAT 99
[2024-08-25 13:23] VITALS: BP 113/79; PULSE 81; RESP 18; TEMP 36.8; O2SAT 100
[2024-08-25] MEDS: KETAMINE HCL 20 MG in 0.9 % SODIUM CHLORIDE 100 ml 100 ML 300.6 MG IVPB (13:41)
== END 2024-08-25 14:47 | disposition home or self-care (01) ==
PROVIDERS: Emergency Provider Emergency Medicine Emergency Medical Services; PCP Family Medicine
DX: H66.92 Otitis media, unspecified, left ear (principal)
CPT/HCPCS: 70480; 70491; 96365; 96375; 99283; 99284; J1885; J3490; Q9967

== ENCOUNTER 2025-01-06 11:21 | Outpatient (CLI) | payer BC, SELFPAY | END 2025-01-06 11:22 | disposition home or self-care (01) | LOC: FBOREF 11:22 | PROVIDERS: PCP Family Medicine; Visit Provider Family Medicine | DX: I10 Essential (primary) hypertension (principal) | CPT/HCPCS: 80048 ==

== ENCOUNTER 2025-04-21 16:35 | Outpatient (CLI) | payer BC, SELFPAY | END 2025-04-21 16:36 | disposition home or self-care (01) | PROVIDERS: PCP Family Medicine; Referring Provider Family Medicine; Visit Provider Family Medicine | DX: N20.0 Calculus of kidney (principal) | CPT/HCPCS: 87086 ==

== ENCOUNTER 2025-05-14 10:09 | Outpatient (CLI) | payer BC, SELFPAY ==
--- NOTE | 2025-05-14 10:15 | CRLHL7_ITS ---
For Patients: As a result of the Century Cures Act, medical imaging exams and procedure reports are released immediately into your electronic medical record. You may view this report before your referring provider. If you have questions, please contact your health care provider. INDICATION: BILATERAL SCREENING MAMMOGRAM, ASYMPTOMATIC 44 Y/O FEMALE COMPARISON: 01/10/2024, 12/18/2022 TECHNIQUE: Digital mammogram in CC and MLO projections including computer-aided detection (CAD) and tomosynthesis. BREAST COMPOSITION: There are scattered areas of fibroglandular density. FINDINGS: No suspicious findings. ASSESSMENT: BI-RADS 1 Negative RECOMMENDATION: Annual screening mammogram. A lay language report of this examination will be provided to the patient. Dictated by: Tk Cagle MD @ 05/14/2025 12:27:09 (Electronically Signed)
== END 2025-05-14 10:10 | disposition home or self-care (01) ==
LOC: MAMMO 10:10
PROVIDERS: PCP Family Medicine; Visit Provider Family Medicine
DX: Z12.31 Encounter for screening mammogram for malignant neoplasm of breast (principal)
CPT/HCPCS: 77063; 77067